=== PATIENT | female | born 1965 | race Caucasian/White ===

== ENCOUNTER 2022-04-29 08:52 | Outpatient (CLI) | payer BC ==
[2022-04-29 14:36] LABS: BASOPHILS # (AUTO) 0.1 10^3/uL (0.0-0.1); BASOPHILS % (AUTO) 0.7 %; EOSINOPHILS # (AUTO) 0.2 10^3/uL (0.0-0.7); EOSINOPHILS % (AUTO) 1.8 %; HCT - HEMATOCRIT 35.2 % (37.0-47.0); HGB - HEMOGLOBIN 11.6 g/dL (12.0-16.0); LYMPHOCYTES # (AUTO) 2.2 10^3/uL (1.5-3.5); LYMPHOCYTES % (AUTO) 25.5 %; MEAN CORPUSCULAR HEMOGLOBIN 31.6 pg (27.0-31.0); MEAN CORPUSCULAR VOLUME 95.9 fL (81.0-99.0); MEAN PLATELET VOLUME 10.8 fL (7.9-10.8); MONOCYTES # (AUTO) 0.7 10^3/uL (0.0-1.0); MONOCYTES % (AUTO) 8.2 %; NEUTROPHILS # (AUTO) 5.2 10^3/uL (1.5-6.6); NEUTROPHILS % (AUTO) 62.1 %; PLT - PLATELET COUNT 231 10^3/uL (130-450); RED BLOOD COUNT 3.67 10^6/uL (4.20-5.40); RED CELL DISTRIBUTION WIDTH 13.2 % (12.0-15.0); WHITE BLOOD COUNT 8.4 x10^3/uL (4.8-10.8)
[2022-04-29 14:51] LABS: ALBUMIN 3.9 g/dL (3.2-5.5); ALBUMIN/GLOBULIN RATIO 1.2 (1.0-2.2); ALKALINE PHOSPHATASE 72 IU/L (42-121); ALT ALANINE AMINOTRANSFERASE 34 IU/L (10-60); AST ASPARTATE AMINOTRANSFERASE 30 IU/L (10-42); BILIRUBIN,TOTAL 0.7 mg/dL (0.2-1.0); BUN - BLOOD UREA NITROGEN 11 mg/dL (6-20); CARBON DIOXIDE - CO2 29 mmol/L (21-32); CHLORIDE 101 mmol/L (101-111); CHOL/HDL RATIO 5.1 (<4.4); CHOLESTEROL 157 mg/dL; CREATININE 0.6 mg/dL (0.4-1.0); GFR - MDRD 103 (>89); GLUCOSE 234 mg/dL (70-100); HDL CHOLESTEROL 31 mg/dL; LDL CHOLESTEROL,CALCULATED 62 mg/dL; POTASSIUM 3.9 mmol/L (3.5-5.0); SODIUM 139 mmol/L (135-145); TOTAL PROTEIN 7.1 g/dL (6.7-8.2); TRIGLYCERIDES 318 mg/dL; VLDL CHOLESTEROL 64 mg/dL
[2022-04-29 14:58] LABS: THYROID STIMULATING HORMONE 3.17 uIU/mL (0.34-5.60)
== END 2022-04-29 08:53 | disposition home or self-care (01) ==
LOC: LAB.S 08:52
PROVIDERS: ATTEND Registered Nurse
DX: K21.9 Gastro-esophageal reflux disease without esophagitis (principal); D64.9 Anemia, unspecified; I10 Essential (primary) hypertension
CPT/HCPCS: 36415; 80053; 80061; 83721; 84443; 85025

== ENCOUNTER 2022-08-26 10:34 | Outpatient (CLI) | payer BC ==
[2022-08-26 14:21] LABS: BASOPHILS % (AUTO) 0.5 %; EOSINOPHILS # (AUTO) 0.1 10^3/uL (0.0-0.7); EOSINOPHILS % (AUTO) 1.6 %; HCT - HEMATOCRIT 36.4 % (37.0-47.0); HGB - HEMOGLOBIN 11.4 g/dL (12.0-16.0); LYMPHOCYTES % (AUTO) 25.6 %; MEAN CORPUSCULAR HEMOGLOBIN 30.5 pg (27.0-31.0); MEAN CORPUSCULAR HGB CONC 31.3 g/dL (32.0-36.0); MEAN CORPUSCULAR VOLUME 97.3 fL (81.0-99.0); MEAN PLATELET VOLUME 10.6 fL (7.9-10.8); MONOCYTES # (AUTO) 0.6 10^3/uL (0.0-1.0); MONOCYTES % (AUTO) 7.3 %; NEUTROPHILS # (AUTO) 4.9 10^3/uL (1.5-6.6); NEUTROPHILS % (AUTO) 63.8 %; PLT - PLATELET COUNT 250 10^3/uL (130-450); RED BLOOD COUNT 3.74 10^6/uL (4.20-5.40); RED CELL DISTRIBUTION WIDTH 13.5 % (12.0-15.0); WHITE BLOOD COUNT 7.7 x10^3/uL (4.8-10.8)
[2022-08-26 14:52] LABS: THYROID STIMULATING HORMONE 2.79 uIU/mL (0.34-5.60)
[2022-08-26 15:20] LABS: ALBUMIN 4.1 g/dL (3.2-5.5); ALBUMIN/GLOBULIN RATIO 1.2 (1.0-2.2); ALKALINE PHOSPHATASE 61 IU/L (42-121); ALT ALANINE AMINOTRANSFERASE 29 IU/L (10-60); AST ASPARTATE AMINOTRANSFERASE 26 IU/L (10-42); BILIRUBIN,TOTAL 0.7 mg/dL (0.2-1.0); BUN - BLOOD UREA NITROGEN 13 mg/dL (6-20); CALCIUM 9.1 mg/dL (8.5-10.3); CARBON DIOXIDE - CO2 30 mmol/L (21-32); CHLORIDE 101 mmol/L (101-111); CHOL/HDL RATIO 3.1 (<4.4); CHOLESTEROL 113 mg/dL; CREATININE 0.5 mg/dL (0.4-1.0); GFR - MDRD 127 (>89); GLUCOSE 184 mg/dL (70-100); HDL CHOLESTEROL 36 mg/dL; LDL CHOLESTEROL,CALCULATED 36 mg/dL; POTASSIUM 3.7 mmol/L (3.5-5.0); SODIUM 139 mmol/L (135-145); TOTAL PROTEIN 7.6 g/dL (6.7-8.2); TRIGLYCERIDES 207 mg/dL; VLDL CHOLESTEROL 41 mg/dL
== END 2022-08-26 10:35 | disposition home or self-care (01) ==
LOC: LAB.S 10:34
PROVIDERS: ATTEND Registered Nurse
DX: E78.5 Hyperlipidemia, unspecified (principal); Z79.899 Other long term (current) drug therapy; Z13.29 Encounter for screening for other suspected endocrine disorder
CPT/HCPCS: 36415; 80053; 80061; 83721; 84443; 85025

== ENCOUNTER 2023-05-25 08:30 | Outpatient (CLI) | payer BC ==
[2023-05-25 14:23] LABS: ESTIMATED AVERAGE GLUCOSE 143 mg/dL (70-100); HEMOGLOBIN A1c% 6.6 % (4.27-6.07)
[2023-05-25 15:02] LABS: BASOPHILS % (AUTO) 0.5 %; EOSINOPHILS # (AUTO) 0.2 10^3/uL (0.0-0.7); EOSINOPHILS % (AUTO) 2.2 %; HCT - HEMATOCRIT 35.2 % (37.0-47.0); HGB - HEMOGLOBIN 11.1 g/dL (12.0-16.0); LYMPHOCYTES # (AUTO) 2.4 10^3/uL (1.5-3.5); LYMPHOCYTES % (AUTO) 32.6 %; MEAN CORPUSCULAR HEMOGLOBIN 31.7 pg (27.0-31.0); MEAN CORPUSCULAR HGB CONC 31.5 g/dL (32.0-36.0); MEAN CORPUSCULAR VOLUME 100.6 fL (81.0-99.0); MEAN PLATELET VOLUME 10.2 fL (7.9-10.8); MONOCYTES # (AUTO) 0.6 10^3/uL (0.0-1.0); MONOCYTES % (AUTO) 7.9 %; NEUTROPHILS # (AUTO) 4.1 10^3/uL (1.5-6.6); PLT - PLATELET COUNT 275 10^3/uL (130-450); RED CELL DISTRIBUTION WIDTH 13.2 % (12.0-15.0); WHITE BLOOD COUNT 7.3 x10^3/uL (4.8-10.8)
[2023-05-25 16:01] LABS: THYROID STIMULATING HORMONE 3.24 uIU/mL (0.34-5.60)
[2023-05-25 16:17] LABS: ALBUMIN 4.4 g/dL (3.2-5.5); ALBUMIN/GLOBULIN RATIO 1.6 (1.0-2.2); ALKALINE PHOSPHATASE 63 IU/L (42-121); ALT ALANINE AMINOTRANSFERASE 15 IU/L (10-60); AST ASPARTATE AMINOTRANSFERASE 11 IU/L (10-42); BILIRUBIN,TOTAL 0.4 mg/dL (0.2-1.0); BUN - BLOOD UREA NITROGEN 14 mg/dL (6-20); CALCIUM 9.4 mg/dL (8.5-10.3); CARBON DIOXIDE - CO2 31 mmol/L (21-32); CHLORIDE 103 mmol/L (101-111); CHOLESTEROL 112 mg/dL; CREATININE 0.6 mg/dL (0.6-1.3); GFR - MDRD 103 (>89); GLUCOSE 132 mg/dL (74-104); POTASSIUM 3.7 mmol/L (3.5-4.5); SODIUM 141 mmol/L (135-145); TOTAL PROTEIN 7.1 g/dL (6.4-8.9); TRIGLYCERIDES 195 mg/dL (48-352); VLDL CHOLESTEROL 39 mg/dL
[2023-05-25 16:29] LABS: CREATININE,URINE 69.1 mg/dL; MICROALBUM/CREATININE RATIO,UR 17.4 ug/mg (<30.0); MICROALBUMIN,URINE 1.2 mg/dL
[2023-05-25 21:41] LABS: CHOL/HDL RATIO 2.9 (<4.4); HDL CHOLESTEROL 38 mg/dL; LDL CHOLESTEROL,CALCULATED 35 mg/dL; LDL/HDL RATIO 0.9 (<4.4)
== END 2023-05-25 08:31 | disposition home or self-care (01) ==
LOC: LAB.S 08:30
PROVIDERS: ATTEND Registered Nurse
DX: E11.9 Type 2 diabetes mellitus without complications (principal); Z79.899 Other long term (current) drug therapy; E78.5 Hyperlipidemia, unspecified; Z13.29 Encounter for screening for other suspected endocrine disorder
CPT/HCPCS: 36415; 80053; 80061; 82043; 82570; 83036; 83721; 84443; 85025